=== PATIENT | male | born 1970 | race Caucasian/White ===

== ENCOUNTER 2016-11-16 12:55 | Emergency (ER) | payer OTHER ==
[~2016-11-16] VITALS: Ht 175.3 cm; Wt 85.0 kg
[2016-11-16 12:57] VITALS: BP 156/91; PULSE 105; TEMP 97.5; O2SAT 100
[2016-11-16] MEDS ORDERED: LORA-392 PO ×2 (13:05→15:04)
[2016-11-16 13:22] VITALS: RESP 16; O2SAT 98
[2016-11-16 13:23] VITALS: TEMP 98.9
[2016-11-16] MEDS: NITROGLYCERIN 0.4 MG SL 25 TABS/BTL SL SCH ×3 (13:28→14:01)
[2016-11-16] MEDS ORDERED: SODIUM CHLORIDE 0.9% FLUSH 10 ML FLUSH IVF PRN (13:30)
[2016-11-16] MEDS ORDERED: ASPIRIN 81 MG CHEW TAB PO ONE (13:30)
[2016-11-16 13:41] LABS: AUTOMATED NEUTROPHIL # 5.8 TH/MM3 (1.8-7.7); BASOPHIL # 0.1 TH/MM3 (0-0.2); BASOPHIL % 0.8 % (0.0-2.0); EOSINOPHIL # 0.1 TH/MM3 (0-0.4); EOSINOPHIL % 1.5 % (0.0-4.0); HEMATOCRIT 45.3 % (39.0-51.0); HEMO FLAGS DIFF FINAL; LYMPH % 21.5 % (9.0-44.0); LYMPHOCYTE # 1.8 TH/MM3 (1.0-4.8); MEAN CELL VOLUME 84.7 FL (80.0-100.0); MEAN CORPUSCULAR HEMOGLOBIN 29.4 PG (27.0-34.0); MEAN CORPUSCULAR HGB CONC 34.6 % (32.0-36.0); MONO % 8.5 % (0.0-8.0); NEUT % 67.7 % (16.0-70.0); PLATELET COUNT 266 TH/MM3 (150-450); RED BLOOD COUNT 5.35 MIL/MM3 (4.50-5.90); RED CELL DISTRIBUTION WIDTH 12.8 % (11.6-17.2); WHITE BLOOD COUNT 8.5 TH/MM3 (4.0-11.0)
[2016-11-16 13:48] LABS: APTT (PATIENT) 24.6 SEC (24.3-30.1); INTERNATIONAL NORMALIZED RATIO 0.9 RATIO; PROTHROMBIN TIME - PATIENT 10.3 SEC (9.8-11.6)
[2016-11-16 14:01] LABS: ANION GAP 7 MEQ/L (5-15); BICARBONATE 30.3 MEQ/L (21.0-32.0); BLOOD UREA NITROGEN 10 MG/DL (7-18); CHLORIDE 101 MEQ/L (98-107); GLOMERULAR FILTRATION RATE 72 ML/MIN (>89); POTASSIUM 3.6 MEQ/L (3.5-5.1); SODIUM (NA) 138 MEQ/L (136-145)
[2016-11-16 14:04] LABS: CREATINE KINASE 111 U/L (39-308)
--- NOTE | 2016-11-16 14:07 | PD ---
HPI Chief Complaint: Chest Pain Time Seen by Provider: 13:15 Travel History International Travel<30 days: No Contact w/Intl Traveler<30days: No Traveled to known affect area: No History of Present Illness HPI Patient is a 46-year-old male who presents emergency by with complaint of chest pain. Patient states that for the last 3 weeks he has intermittent substernal chest pressure. He describes this as a bandlike sensation around the chest. It is most noticeable first thing in the morning. He does not have any associated epigastric abdominal pain, burning sensation or reflux. He states that the pain when present it last for approximate 1-2 hours and then seems to spontaneously resolve without him doing anything to make it go away. He denies any provocative factors. No associated shortness of breath. Patient notes a history of hyperlipidemia but does not take medication for it, admits to noncompliance. Notes a history of borderline diabetes and hypertension but has never had to be prescribed any medications for this. He does have a history of pericarditis several years ago, states that that pain was much more sharp and worse with movement and this is much more of a heavy pressure. He denies any familial history of cardiac disease. [facility] Past Medical History Anxiety: Yes Cardiovascular Problems: Yes (pericarditis) Past Surgical History Surgical History: No Previous Surgery Social History Alcohol Use: Yes (occ) Tobacco Use: No Substance Use: No Allergies-Medications (Allergen,Severity, Reaction): Coded Allergies: No Known Allergies (Unverified , 11/16/16) Reported Meds & Prescriptions Reported Meds & Active Scripts Active Reported Ativan (Lorazepam) 0.5 Mg Tab 0.5 Mg PO Q4H PRN Review of Systems Except as stated in HPI: all other systems reviewed are Neg Physical Exam Narrative GENERAL: Well-appearing male in no acute distress SKIN: Focused skin assessment warm/dry. HEAD:. Normocephalic. EYES: No scleral icterus. No injection or drainage. ENT: Mucous membranes pink and moist. NECK: Supple CARDIOVASCULAR: Regular rate and rhythm. No murmur appreciated. RESPIRATORY: No accessory muscle use. Clear to auscultation. Breath sounds equal bilaterally. GASTROINTESTINAL: Abdomen soft, non-tender, nondistended. MUSCULOSKELETAL: No obvious deformities. No edema. NEUROLOGICAL: Awake and alert. Motor grossly within normal limits. Normal speech. PSYCHIATRIC: Appropriate mood and affect; insight and judgment normal. Data Data Last Documented VS Vital Signs Date Time Temp Pulse Resp B/P Pulse Ox O2 Delivery O2 Flow Rate FiO2 11/16/16 13:23 98.9 11/16/16 13:22 16 98 Room Air 11/16/16 12:57 105 156/91 Orders Electrocardiogram (11/16/16 13:20) Basic Metabolic Panel (Bmp) (11/16/16 13:20) Ckmb (Isoenzyme) Profile (11/16/16 13:20) Complete Blood Count With Diff (11/16/16 13:20) Magnesium (Mg) (11/16/16 13:20) Prothrombin Time / Inr (Pt) (11/16/16 13:20) Act Partial Throm Time (Ptt) (11/16/16 13:20) Troponin I (11/16/16 13:20) Chest, Single Ap (11/16/16 13:20) Ecg Monitoring (11/16/16 13:20) Bilateral Bp Monitoring (11/16/16 13:20) Iv Access Insert/Monitor (11/16/16 13:20) Oximetry (11/16/16 13:20) Aspirin Chew (Aspirin Chew) (11/16/16 13:30) Sodium Chloride 0.9% Flush (Ns Flush) (11/16/16 13:30) Nitroglycerin Sl (Nitrostat Sl) (11/16/16 13:30) CKMB (11/16/16 13:20) CKMB% (11/16/16 13:20) Labs Laboratory Tests Test 11/16/16 13:20 White Blood Count 8.5 TH/MM3 Red Blood Count 5.35 MIL/MM3 Hemoglobin 15.7 GM/DL Hematocrit 45.3 % Mean Corpuscular Volume 84.7 FL Mean Corpuscular Hemoglobin 29.4 PG Mean Corpuscular Hemoglobin 34.6 % Concent Red Cell Distribution Width 12.8 % Platelet Count 266 TH/MM3 Mean Platelet Volume 8.6 FL Neutrophils (%) (Auto) 67.7 % Lymphocytes (%) (Auto) 21.5 % Monocytes (%) (Auto) 8.5 % Eosinophils (%) (Auto) 1.5 % Basophils (%) (Auto) 0.8 % Neutrophils # (Auto) 5.8 TH/MM3 Lymphocytes # (Auto) 1.8 TH/MM3 Monocytes # (Auto) 0.7 TH/MM3 Eosinophils # (Auto) 0.1 TH/MM3 Basophils # (Auto) 0.1 TH/MM3 CBC Comment DIFF FINAL Differential Comment Prothrombin Time 10.3 SEC Prothromb Time International 0.9 RATIO Ratio Activated Partial 24.6 SEC Thromboplast Time Sodium Level 138 MEQ/L Potassium Level 3.6 MEQ/L Chloride Level 101 MEQ/L Carbon Dioxide Level 30.3 MEQ/L Anion Gap 7 MEQ/L Blood Urea Nitrogen 10 MG/DL Creatinine 1.10 MG/DL Estimat Glomerular Filtration 72 ML/MIN Rate Random Glucose 102 MG/DL Calcium Level 9.7 MG/DL Magnesium Level 2.0 MG/DL Total Creatine Kinase 111 U/L Creatine Kinase MB 1.1 NG/ML Troponin I LESS THAN 0.02 NG/ML MDM Medical Decision Making Medical Screen Exam Complete: Yes Emergency Medical Condition: Yes Medical Record Reviewed: Yes Differential Diagnosis 46-year-old obese male with history of HLD and borderline HTN/DM 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 Differential includes ACS, atypical chest pain, GERD, and less likely musculoskeletal, PE or dissection. Narrative Course Patient was placed on monitor, IV established and blood obtained. A twelve- lead EKG shows sinus rhythm without notable ST or T-wave abnormalities, normal intervals. Patient was given aspirin and subungual nitroglycerin. Portal chest x-ray obtained that by my read shows no acute abnormalities. CBC, BMP, magnesium, CK-MB, troponin, coags obtained and unremarkable. Discussed risk factors and need for provocative testing, admission to the chest pain center but ultimately patient declines wanting to have this done as an outpatient. He admits that he has a history of anxiety and typically takes Ativan for this but ran out 3 weeks ago on his concerned that this may be contributing to his symptoms. Patient will be discharged home with a small prescription for Ativan and outpatient stress testing. Diagnosis Primary Impression: Precordial chest pain Referrals: Primary Care Physician call for appointment Additional Instructions: Follow-up with primary care provider for outpatient stress testing as discussed. Return to the ER for the warning signs discussed. Med/Other Pt SpecificInfo: No Change to Meds Scripts Lorazepam (Ativan)0.5 Mg Tab0.5 Mg PO Q4H PRN (For mild anxiety / dyspnea) #10 TAB Ref 0 Prov:Lorri Amezcua MD 11/16/16 Disposition: 01 DISCHARGE HOME Condition: Stable Lorri Amezcua MD Nov 16, 2016 14:07
[2016-11-16 14:17] LABS: CKMB 1.1 NG/ML (0.5-3.6)
--- NOTE | 2016-11-16 14:18 | RADRPT ---
EXAM DATE/TIME: 11/16/2016 13:49 [facility] COMPARISON: No previous studies available for comparison. INDICATIONS : Short of breath. MEDICAL HISTORY : None. SURGICAL HISTORY : None. ENCOUNTER: Initial ACUITY: 3 weeks PAIN SCORE: 2/10 LOCATION: Bilateral chest FINDINGS: A single view of the chest demonstrates the lungs to be symmetrically aerated without evidence of mas s, infiltrate or effusion. The cardiomediastinal contours are unremarkable. Osseous structures are intact. CONCLUSION: No acute disease. Elgin Dewitt MD on November 16, 2016 at 14:15 Board Certified Radiologist. This report was verified electronically.
--- NOTE | 2016-11-17 10:04 | EKG ---
Date Performed: 11/16/2016 Time Performed: 13:08:21 PTAGE: 46 years EKG: Sinus rhythm MODERATE VOLTAGE CRITERIA FOR LVH, CONSIDER NORMAL VARIANT BORDERLINE ECG NO PREVIOUS TRACING DOCTOR: Tk Ley Interpretating Date/Time 11/17/2016 10:02:22
== END 2016-11-16 15:20 | disposition home or self-care (01) ==
LOC: NEPD 12:55
DX: R07.2 Precordial pain (principal); F41.9 Anxiety disorder, unspecified; E78.5 Hyperlipidemia, unspecified; R73.03 Prediabetes; I10 Essential (primary) hypertension
CPT/HCPCS: 71010; 80048; 82550; 82552; 83735; 84484; 85025; 85610; 85730; 93005

== ENCOUNTER 2017-01-30 22:45 | Observation (INO) | payer OTHER ==
[~2017-01-30] VITALS: Ht 175.3 cm; Wt 87.0 kg
[~2017-01-30 22:45] MED LIST: LORA-392 PO
[2017-01-30 22:49] VITALS: BP 166/91; PULSE 56; RESP 20; TEMP 97.6; O2SAT 100
[2017-01-30] MEDS ORDERED: ASPIRIN 81 MG CHEW TAB PO ONE (23:30)
[2017-01-30] MEDS ORDERED: SODIUM CHLORIDE 0.9% FLUSH 10 ML FLUSH IVF PRN (23:30)
[2017-01-30 23:33] VITALS: BP 134/82; PULSE 54; RESP 18; O2SAT 99
[2017-01-30 23:34] VITALS: BP 136/85; PULSE 56; RESP 18; O2SAT 100
--- NOTE | 2017-01-30 23:36 | PD ---
HPI Chief Complaint: Chest Pain Time Seen by Provider: 23:15 Travel History International Travel<30 days: No Contact w/Intl Traveler<30days: No Traveled to known affect area: No History of Present Illness HPI The patient is a 46 year old male who presents to the [facility] emergency department with a history of shortness of breath that he reports began suddenly 1 hour prior to arrival. The patient reports that over the last few months he has been dealing with intermittent substernal chest pain, palpitations that initially in November was evaluated in the emergency department with a negative cardiac workup and a normal ECG. He reports that since then he has followed up with his primary care physician, . He reports that he has been taking Ativan for anxiety. He reports that he was briefly on buspirone, however he stopped this related to dizziness. The patient reports that he has a history of anxiety disorder that was originally diagnosed several years ago. He reports that he was quite to have a stress test done to further evaluate the chest pain, shortness of breath, and palpitations, however he decided not to follow-up for this to be completed. The patient denies having any significant cough or congestion. He denies having any fevers or chills. He reports that he did have "an emotional breakdown" earlier today, however after that he had been fine up until the abrupt onset of shortness of breath. He denies having any family history of cardiac disease. He does report having a personal history of hyperlipidemia, however no history of hypertension or diabetes mellitus. He denies having any prior history of DVT or PE. He denies having any family history of blood clots. On review of systems, the patient denies having any neck pain, chest pain currently, abdominal pain, vomiting, diarrhea, urinary symptoms, or neurologic symptoms. [facility] Past Medical History Narrative Medical The patient's past medical history is significant for anxiety disorder, and migraine headaches Anxiety: Yes Cardiovascular Problems: Yes (HTN) Past Surgical History Narrative Surgical The patient's past surgical history is reportedly none. Social History Alcohol Use: Yes (occ) Tobacco Use: No Substance Use: No Allergies-Medications (Allergen,Severity, Reaction): Coded Allergies: No Known Allergies (Unverified , 01/30/17) Reported Meds & Prescriptions Reported Meds & Active Scripts Active Reported Ativan (Lorazepam) 0.5 Mg Tab 0.5 Mg PO Q4H PRN Review of Systems Except as stated in HPI: all other systems reviewed are Neg General / Constitutional: No: Fever Eyes: No: Visual changes HENT: No: Headaches, Congestion Cardiovascular: Positive: Chest Pain or Discomfort, Palpitations, Tachycardia Respiratory: Positive: Shortness of Breath Gastrointestinal: No: Abdominal Pain Genitourinary: No: Dysuria Musculoskeletal: No: Pain Skin: No Rash Neurologic: No: Weakness Psychiatric: No: Depression Endocrine: No: Polydipsia Hematologic/Lymphatic: No: Easy Bruising Physical Exam Narrative General: The patient is a well-developed well-nourished male in no acute distress. Head and Neck exam: Head is normocephalic atraumatic. Eyes: EOMI, pupils are equal round and reactive to light. Nose: Midline septum with pink mucous membranes Mouth: Dentition unremarkable. Moist mucus membranes. Posterior oropharynx is not erythematous. No tonsillar hypertrophy. Uvula midline. Airway patent. Neck: No palpable lymphadenopathy. No nuchal rigidity. No thyromegaly. Cardiovascular: Regular rate and rhythm without murmurs, gallops, or rubs. No pulse deficit to the extremities on simultaneous auscultation and palpation of his radial artery. Lungs: Clear to auscultation bilaterally. No wheezes, rhonchi, or rales. Abdomen: Soft, without tenderness to palpation in all 4 quadrants of the abdomen. No guarding, rebound, or rigidity. Normal bowel sounds are audible. No tenderness on palpation of McBurney's point. Extremities: No clubbing, cyanosis, or edema. 2+ pulses in all 4 extremities. No calf tenderness on palpation. Back: No spinous process tenderness to palpation. No costovertebral angle tenderness to palpation. Neurologic Exam: Grossly nonfocal. Skin Exam: No rash noted. Intact skin that is warm and dry. Data Data Last Documented VS Vital Signs Date Time Temp Pulse Resp B/P (MAP) Pulse Ox O2 Delivery O2 Flow Rate FiO2 01/30/17 23:35 100 Nasal Cannula 2.00 01/30/17 23:34 56 18 136/85 (102) 01/30/17 22:49 97.6 Orders Orders Electrocardiogram (01/30/17 23:30) B-Type Natriuretic Peptide (01/30/17 23:30) Ckmb (Isoenzyme) Profile (01/30/17 23:30) Complete Blood Count With Diff (01/30/17 23:30) Comprehensive Metabolic Panel (01/30/17 23:30) D-Dimer (01/30/17 23:30) Magnesium (Mg) (01/30/17 23:30) Prothrombin Time / Inr (Pt) (01/30/17 23:30) Act Partial Throm Time (Ptt) (01/30/17 23:30) Troponin I (01/30/17 23:30) Lipase (01/30/17 23:30) Chest, Single Ap (01/30/17 23:30) Ecg Monitoring (01/30/17 23:30) Bilateral Bp Monitoring (01/30/17 23:30) Iv Access Insert/Monitor (01/30/17 23:30) Oximetry (01/30/17 23:30) Oxygen Administration (01/30/17 23:30) Aspirin Chew (Aspirin Chew) (01/30/17 23:30) Sodium Chloride 0.9% Flush (Ns Flush) (01/30/17 23:30) Admit Order (Ed Use Only) (01/31/17 01:22) Labs Laboratory Tests Test 01/30/17 23:55 White Blood Count 8.6 TH/MM3 Red Blood Count 5.03 MIL/MM3 Hemoglobin 15.2 GM/DL Hematocrit 43.2 % Mean Corpuscular Volume 85.9 FL Mean Corpuscular Hemoglobin 30.3 PG Mean Corpuscular Hemoglobin Concent 35.3 % Red Cell Distribution Width 12.7 % Platelet Count 224 TH/MM3 Mean Platelet Volume 8.6 FL Neutrophils (%) (Auto) 62.1 % Lymphocytes (%) (Auto) 20.9 % Monocytes (%) (Auto) 13.0 % Eosinophils (%) (Auto) 3.2 % Basophils (%) (Auto) 0.8 % Neutrophils # (Auto) 5.3 TH/MM3 Lymphocytes # (Auto) 1.8 TH/MM3 Monocytes # (Auto) 1.1 TH/MM3 Eosinophils # (Auto) 0.3 TH/MM3 Basophils # (Auto) 0.1 TH/MM3 CBC Comment DIFF FINAL Differential Comment Prothrombin Time 10.0 SEC Prothromb Time International Ratio 0.9 RATIO Activated Partial Thromboplast Time 25.0 SEC D-Dimer Quantitative (PE/DVT) 0.41 MG/L FEU Blood Urea Nitrogen 14 MG/DL Creatinine 1.08 MG/DL Random Glucose 84 MG/DL Total Protein 7.7 GM/DL Albumin 4.1 GM/DL Calcium Level 8.9 MG/DL Magnesium Level 2.3 MG/DL Alkaline Phosphatase 71 U/L Aspartate Amino Transf (AST/SGOT) 23 U/L Alanine Aminotransferase (ALT/SGPT) 50 U/L Total Bilirubin 0.7 MG/DL Sodium Level 140 MEQ/L Potassium Level 4.0 MEQ/L Chloride Level 104 MEQ/L Carbon Dioxide Level 30.2 MEQ/L Anion Gap 6 MEQ/L Estimat Glomerular Filtration Rate 74 ML/MIN Total Creatine Kinase 75 U/L Troponin I LESS THAN 0.02 NG/ML B-Type Natriuretic Peptide 3 PG/ML Lipase 208 U/L MDM Medical Decision Making Medical Screen Exam Complete: Yes Emergency Medical Condition: Yes Medical Record Reviewed: Yes Interpretation(s) Last Impressions Chest X-Ray 01/30/17 7340 Signed Impressions: Service Date/Time: Monday, January 30, 2017 23:41 - CONCLUSION: No acute disease. Chris Avalos Jr., MD Differential Diagnosis Acute coronary syndrome, versus pulmonary embolism, versus pneumothorax, versus new-onset congestive heart failure, versus pneumonia Narrative Course During the course of the patients emergency department visit, the patients history, examination, and differential diagnosis were reviewed with the patient. The patient had IV access obtained and blood work sent for analysis. The patient was placed on a bench lay out technician with oximetry and blood pressure monitoring. An ECG was done on arrival. The patient's ECG reveals a sinus rhythm heart rate of 65, no acute ST segment elevation or depression. QRS duration is 75 ms, QTC 430 ms The patient was initially provided aspirin 324 mg by mouth 1. The patients laboratory studies were reviewed and remarkable for white count of 8.6, hemoglobin 15.2, platelets 224 with 13 monocytes. CMP is remarkable for a GFR of 74, CPK 75, troponin I less than 0.02, BNP is 3, lipase 208, PT PTT within normal as, d-dimer 0.41 Radiology studies were reviewed and remarkable for a chest x-ray that shows no acute cardiopulmonary disease. The patient will be admitted to the chest pain center for rule out serial cardiac enzyme protocol followed by stress testing. The patients results were discussed with the patient, including the plan of care. I explained that further testing and/ or monitoring is indicated based on the patients history, examination, and/ or laboratory findings. Therefore, I recommended admission for additional evaluation. The patient expressed understanding and was agreeable with this plan. The patient was admitted to the hospital in stable condition and sent to a bed under the care of the chest pain center. Diagnosis Primary Impression: Chest pain, rule out acute myocardial infarction Additional Impression: Shortness of breath Admitting Information Admitting Physician Requests: Observation Aditi Goldberg MD Jan 30, 2017 23:36
[2017-01-31 00:03] LABS: AUTOMATED NEUTROPHIL # 5.3 TH/MM3 (1.8-7.7); BASOPHIL # 0.1 TH/MM3 (0-0.2); BASOPHIL % 0.8 % (0.0-2.0); EOSINOPHIL # 0.3 TH/MM3 (0-0.4); EOSINOPHIL % 3.2 % (0.0-4.0); HEMATOCRIT 43.2 % (39.0-51.0); HEMO FLAGS DIFF FINAL; LYMPH % 20.9 % (9.0-44.0); LYMPHOCYTE # 1.8 TH/MM3 (1.0-4.8); MEAN CELL VOLUME 85.9 FL (80.0-100.0); MEAN CORPUSCULAR HEMOGLOBIN 30.3 PG (27.0-34.0); MEAN CORPUSCULAR HGB CONC 35.3 % (32.0-36.0); NEUT % 62.1 % (16.0-70.0); PLATELET COUNT 224 TH/MM3 (150-450); RED BLOOD COUNT 5.03 MIL/MM3 (4.50-5.90); RED CELL DISTRIBUTION WIDTH 12.7 % (11.6-17.2); WHITE BLOOD COUNT 8.6 TH/MM3 (4.0-11.0)
[2017-01-31 00:19] LABS: INTERNATIONAL NORMALIZED RATIO 0.9 RATIO
[2017-01-31 00:20] LABS: ALT (GPT) 50 U/L (12-78); ANION GAP 6 MEQ/L (5-15); AST (GOT) 23 U/L (15-37); BICARBONATE 30.2 MEQ/L (21.0-32.0); BLOOD UREA NITROGEN 14 MG/DL (7-18); CHLORIDE 104 MEQ/L (98-107); GLOMERULAR FILTRATION RATE 74 ML/MIN (>89); MAGNESIUM 2.3 MG/DL (1.5-2.5); SODIUM (NA) 140 MEQ/L (136-145)
[2017-01-31 00:23] LABS: ALKALINE PHOSPHATASE 71 U/L (45-117); TOTAL BILIRUBIN ADULT 0.7 MG/DL (0.2-1.0)
[2017-01-31 00:24] LABS: CREATINE KINASE 75 U/L (39-308)
--- NOTE | 2017-01-31 00:41 | RADRPT ---
EXAM DATE/TIME: 01/30/2017 23:41 [facility] COMPARISON: CHEST SINGLE AP, November 16, 2016, 13:49. INDICATIONS : Cough and chest pain MEDICAL HISTORY : None. SURGICAL HISTORY : None. ENCOUNTER: Initial ACUITY: 1 day PAIN SCORE: 7/10 LOCATION: Bilateral chest FINDINGS: A single view of the chest demonstrates the lungs to be symmetrically aerated without evidence of mas s, infiltrate or effusion. The cardiomediastinal contours are unremarkable. Osseous structures are intact. CONCLUSION: No acute disease. Chris Avalos Jr., MD on January 31, 2017 at 0:39 Board Certified Radiologist. This report was verified electronically.
[2017-01-31] MEDS ORDERED: SODIUM CHLORIDE 0.9% FLUSH 10 ML FLUSH IV FLUSH PRN (02:45)
[2017-01-31 02:54] VITALS: O2SAT 99
[2017-01-31 03:22] VITALS: BP 130/82; PULSE 58; RESP 14; O2SAT 99
[2017-01-31 03:44] LABS: CREATINE KINASE 62 U/L (39-308)
[2017-01-31 07:10] LABS: CREATINE KINASE 62 U/L (39-308)
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
[2017-01-31] MEDS ORDERED: SODIUM CHLORIDE 0.9% FLUSH 10 ML FLUSH IV FLUSH SCH (09:00)
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
[2017-01-31 11:23] VITALS: BP 118/71; PULSE 75; RESP 16; TEMP 97.8; O2SAT 96
--- NOTE | 2017-01-31 14:01 | EKG ---
Date Performed: 01/31/2017 Time Performed: 06:36:43 PTAGE: 46 years EKG: SINUS BRADYCARDIA BORDERLINE ECG PREVIOUS TRACING : 01/31/2017 06.36 Since previous tracing, no significant change noted DOCTOR: Carlos Eduardo Deras Interpretating Date/Time 01/31/2017 14:00:35
--- NOTE | 2017-01-31 14:03 | EKG ---
Date Performed: 01/31/2017 Time Performed: 03:13:51 PTAGE: 46 years EKG: SINUS BRADYCARDIA WITH SINUS ARRHYTHMIA PROLONGED QT INTERVAL ABNORMAL ECG INTERPRETATION B ASED ON A DEFAULT AGE OF 40 YEARS PREVIOUS TRACING : 01/30/2017 23.50 Since previous tracing, no significant change noted DOCTOR: Carlos Eduardo Deras Interpretating Date/Time 01/31/2017 14:01:42
--- NOTE | 2017-01-31 14:04 | EKG ---
Date Performed: 01/30/2017 Time Performed: 23:50:31 PTAGE: 46 years EKG: Sinus rhythm NORMAL ECG PREVIOUS TRACING : 11/16/2016 13.08 Since previous tracing, no significant change noted DOCTOR: Carlos Eduardo Deras Interpretating Date/Time 01/31/2017 14:03:34
--- NOTE | 2017-01-31 14:07 | TR ---
Date Performed: 01/31/2017 Time Performed: 10:40:03 DOCTOR: Carlos Eduardo Deras DRUG LIST: CLINICAL HISTORY: CP R/O DE REASON FOR TEST: REASON FOR ENDING: OBSERVATION: CONCLUSION: Abiel protocol completed. Stopped sec to exceeding target heart rate and leg fatigue . Maximum CS=037 % Target HR Achieved=86.0% Maximum PX=166/80 Total Exercise Time=9:34. No ectopy. No reprod chest discomfort. No st t segment changes to sugg ischemia. Great exercise tolerance. Normal bp response. Recovery quick and unremarkable. COMMENTS: Patient exercised using the Abiel protocol. No electrocardiographic changes were seen to suggest ischemia. Hemodynamic response to exercise was normal. No significant arrhythmia was prese nt.
== END 2017-01-31 12:28 | disposition home or self-care (01) ==
LOC: NEPE 22:45 → NEDA 01-31 01:27 → NEPGCP 01-31 05:47
DX: R07.89 Other chest pain (principal); R00.2 Palpitations; F41.9 Anxiety disorder, unspecified; E78.5 Hyperlipidemia, unspecified; G43.909 Migraine, unspecified, not intractable, without status migrainosus; R94.31 Abnormal electrocardiogram [ECG] [EKG]
CPT/HCPCS: 71010; 80053; 82550; 83690; 83735; 83880; 84484; 85025; 85379; 85610; 85730; 93005; 93017; 99285; G0378